=== PATIENT | female | born 1995 | race African-American/Black ===

== ENCOUNTER 2017-09-11 21:43 | Emergency (ER) | payer OTHER, BC ==
[~2017-09-11] VITALS: Ht 154.9 cm; Wt 105.2 kg
[2017-09-11 21:48] VITALS: BP_SYST 155
[2017-09-11] MEDS ORDERED: IBUPROFEN 800 MG TABLET PO ONE (23:00)
[2017-09-12] VITALS: BP_SYST 141
== END 2017-09-12 | disposition home or self-care (01) ==
LOC: SED 21:43
DX: S10.91XA Abrasion of unspecified part of neck, initial encounter (principal); S40.212A Abrasion of left shoulder, initial encounter; S30.811A Abrasion of abdominal wall, initial encounter; V43.52XA Car driver injured in collision with other type car in traffic accident, initial encounter; Y93.89 Activity, other specified; Y92.410 Unspecified street and highway as the place of occurrence of the external cause; Y99.8 Other external cause status
CPT/HCPCS: 71046-TC; 99284